=== PATIENT | female | born 1970 | race Caucasian/White ===

== ENCOUNTER 2021-05-06 09:55 | Emergency (ER) | payer OTHER ==
[~2021-05-06] VITALS: Ht 170.2 cm; Wt 59.9 kg
== END 2021-05-06 11:47 | disposition home or self-care (01) ==
LOC: ER 09:55
DX: S09.90XA Unspecified injury of head, initial encounter (principal); S01.81XA Laceration without foreign body of other part of head, initial encounter; S00.12XA Contusion of left eyelid and periocular area, initial encounter; F17.200 Nicotine dependence, unspecified, uncomplicated; Z23 Encounter for immunization; Z91.048 Other nonmedicinal substance allergy status; W01.198A Fall on same level from slipping, tripping and stumbling with subsequent striking against other object, initial encounter; Y93.89 Activity, other specified; Y92.488 Other paved roadways as the place of occurrence of the external cause
CPT/HCPCS: 12011; 70486; 90471; 90714; 99283-25